=== PATIENT | male | born 1970 | race Caucasian/White ===

== ENCOUNTER 2016-12-05 17:39 | Emergency (ER) | payer BC ==
[2016-12-05 18:25] VITALS: BP 128/68
--- NOTE | 2016-12-05 18:58 | UC ---
Throat Pain/Nasal Long HPI - HPI Summary HPI Summary: bilat jaw pain. Left ear pain for past 2 days. Notices jaw pain at night, will wake him up. Radiates into left ear. He uses a mouth guard at night because dentist saw evidence of tooth grinding. Sometimes jaw will be "locked" and he will have trouble opening it. Hurts to chew things like meat or gum. - History of Current Complaint Chief Complaint: UCGeneralIllness Stated Complaint: EAR & JAW PAIN Time Seen by Provider: 12/05/16 18:40 Hx Obtained From: Patient Onset/Duration: Gradual Onset, Lasting Weeks - 2 Severity: Mild Cough: None Associated Signs & Symptoms: Negative: Dysphagia, FB Sensation, Drooling, Wheezing, Hoarseness, Sinus Discomfort, Nasal Discharge, Fever - Epiglottits Risk Factors Epiglottis Risk Factors: Negative - Allergies/Home Medications Allergies/Adverse Reactions: Allergies Allergy/AdvReac Type Severity Reaction Status Date / Time Codeine AdvReac Intermediate "makes my Verified 12/05/16 18:21 whole body, stomach knot up" PMH/Surg Hx/FS Hx/Imm Hx Previously Healthy: Yes Endocrine History Of: Denies: Diabetes, Thyroid Disease Cardiovascular History Of: Denies: Cardiac Disorders, Hypertension Respiratory History Of: Denies: COPD, Asthma GI/ History Of: Denies: Ulcer - Surgical History Surgical History: None - Family History Known Family History: Positive: Hypertension - Social History Occupation: Employed Full-time Lives: With Family Alcohol Use: Weekly Alcohol Amount: "couple mixed drinks a few times weekly" Substance Use Type: None Smoking Status (MU): Never Smoked Tobacco - Immunization History Most Recent Influenza Vaccination: Not the Season Review of Systems Constitutional: Negative Skin: Negative Eyes: Negative ENT: Ear Ache, Other - bilat jaw ache Respiratory: Negative Cardiovascular: Negative Gastrointestinal: Negative Genitourinary: Negative Motor: Negative Neurovascular: Negative Musculoskeletal: Negative Neurological: Negative Psychological: Negative All Other Systems Reviewed And Are Negative: Yes Physical Exam Triage Information Reviewed: Yes Appearance: Well-Appearing, No Pain Distress, Well-Nourished Vital Signs: Initial Vital Signs Temp 97.8 F 12/05/16 18:20 Pulse 70 12/05/16 18:20 Resp 16 12/05/16 18:20 BP 128/68 12/05/16 18:20 Pulse Ox 99 12/05/16 18:20 Vital Signs Reviewed: Yes Eye Exam: Normal ENT: Positive: Normal ENT inspection, Hearing grossly normal, Pharynx normal, TMs normal. Negative: TM bulging, TM dull, TM red, Tonsillar swelling, Tonsillar exudate, Trismus, Muffled/hoarse voice Dental: Positive: Other: - tenderness to palpation over TMJ joints, left more than right Neck exam: Normal Neck: Positive: Supple Respiratory Exam: Normal Cardiovascular Exam: Normal Musculoskeletal Exam: Normal Neurological Exam: Normal Psychological Exam: Normal Skin Exam: Normal Throat Pain/Nasal Course/Dx - Differential Dx/Diagnosis Provider Diagnoses: TMJ syndrome Discharge - Discharge Plan Condition: Stable Disposition: HOME Prescriptions: Meloxicam [Mobic] 15 mg PO DAILY PRN #30 tab PRN Reason: Pain Patient Education Materials: Temporomandibular Disorder (ED) Referrals: Javon Diaz MD [Primary Care Provider] - Additional Instructions: TMJ syndrome is often from clenching the jaw at night. Talk to your dentist to see if there are alternative treatments. Work on reducing stress, as this is usually the cause of jaw clenching at night.
== END 2016-12-05 19:04 | disposition home or self-care (01) ==
LOC: UCCORT 17:39
DX: M26.609 Unspecified temporomandibular joint disorder, unspecified side (principal); Z88.5 Allergy status to narcotic agent
CPT/HCPCS: 99212; G0463

== ENCOUNTER 2017-08-30 07:08 | Emergency (ER) | payer BC ==
[2017-08-30 07:16] VITALS: BP 126/82
--- NOTE | 2017-08-30 07:29 | UC ---
Respiratory Complaint HPI - HPI Summary HPI Summary: he has been sick with cough, congestion that has been improving. Over the last two days, cough has worsened and he has had myalgias and malaise as well. - History of Current Complaint Chief Complaint: UCRespiratory Stated Complaint: COUGH,BODY ACHES Time Seen by Provider: 08/30/17 07:20 Hx Obtained From: Patient Onset/Duration: Gradual Onset, Lasting Days Timing: Constant Severity Initially: Mild Severity Currently: Moderate Character: Cough: Nonproductive Aggravating Factors: Deep Breaths, Recumbent Position Alleviating Factors: Other - mucinex dm. Associated Signs And Symptoms: Positive: Chills, URI, Nasal Congestion - Risk Factors Pulmonary Embolism Risk Factors: Negative - Allergies/Home Medications Allergies/Adverse Reactions: Allergies Allergy/AdvReac Type Severity Reaction Status Date / Time Codeine AdvReac Intermediate "makes my Verified 08/30/17 07:16 whole body, stomach knot up" PMH/Surg Hx/FS Hx/Imm Hx Previously Healthy: Yes - no lung disease. - Surgical History Surgical History: None - Family History Known Family History: Positive: Hypertension - Social History Alcohol Use: Weekly Alcohol Amount: "couple mixed drinks a few times weekly" Substance Use Type: None Smoking Status (MU): Never Smoked Tobacco - Immunization History Most Recent Influenza Vaccination: no Review of Systems Respiratory: Cough All Other Systems Reviewed And Are Negative: Yes Physical Exam Triage Information Reviewed: Yes Appearance: Well-Appearing - non toxic. frequent dry cough., No Pain Distress, Well-Nourished Vital Signs: Initial Vital Signs Temp 99 F 08/30/17 07:12 Pulse 85 08/30/17 07:12 Resp 18 08/30/17 07:12 BP 126/82 08/30/17 07:12 Pulse Ox 98 08/30/17 07:12 Vital Signs Reviewed: Yes Eye Exam: Normal Eyes: Positive: Conjunctiva Clear. Negative: Conjunctiva Inflamed ENT: Positive: Pharynx normal, Nasal congestion, TMs normal. Negative: Pharyngeal erythema, Tonsillar swelling, Tonsillar exudate, Trismus Neck exam: Normal Neck: Positive: Supple, Nontender, No Lymphadenopathy Respiratory: Positive: Lungs clear, Normal breath sounds, No respiratory distress, No accessory muscle use. Negative: Respiratory distress, Decreased breath sounds, Accessory muscle use, Crackles, Rhonchi, Stridor, Wheezing Cardiovascular: Positive: RRR, No Murmur, Pulses Normal, Brisk Capillary Refill. Negative: Tachycardia, Bradycardia Abdomen Description: Positive: Nontender, No Organomegaly, Soft Musculoskeletal: Positive: ROM Intact, No Edema Neurological: Positive: Alert, Muscle Tone Normal, Fatigued Skin: Negative: rashes UC Diagnostic Evaluation - Laboratory O2 Sat by Pulse Oximetry: 98 Respiratory Course/Dx - Course Course Of Treatment: supportive care. likely resolving chest cold and he had another viral chest cold begin. There are no clinical signs of pneumonia. he will start z pack if not better in 5-7 days. - Differential Dx/Diagnosis Differential Diagnosis/HQI/PQRI: Aspiration, Asthma, Bronchitis, CHF, Pulmonary Edema, Influenza, Laryngitis, Lower Resp Infection, Pneumothorax, Pulmonary Embolism, Sinusitis Provider Diagnoses: uri. chest cold Discharge - Discharge Plan Condition: Good Disposition: HOME Prescriptions: Azithromyxin MARIA ALEJANDRA (NF) [Z-Maria Alejandra (Zithromax) 250 mg tabs #6] 1 tab PO .TODAY, THEN 1 DAILY #6 tab Benzonatate CAP* [Tessalon 100 MG CAP*] 100 mg PO TID PRN #20 cap PRN Reason: Cough Patient Education Materials: Upper Respiratory Infection (ED) Forms: *Work Release Referrals: Javon Diaz MD [Primary Care Provider] - If Needed
== END 2017-08-30 07:34 | disposition home or self-care (01) ==
LOC: UCCORT 07:08
DX: J06.9 Acute upper respiratory infection, unspecified (principal); Z88.5 Allergy status to narcotic agent
CPT/HCPCS: 99212; G0463

== ENCOUNTER 2018-07-27 09:04 | Emergency (ER) | payer BC ==
--- NOTE | 2018-07-27 11:12 | UC ---
General HPI - HPI Summary HPI Summary: R eye d/c x [address], cough and now much worse sinus pain, pressure and congestion for at least 1 week - History of Current Complaint Stated Complaint: RIGHT EYE COMPLAINT/COUGH CONGESTION Time Seen by Provider: 07/27/18 10:44 Hx Obtained From: Patient Onset/Duration: Gradual Onset Timing: Constant Alleviating: nothing Associated Signs & Symptoms: Positive: Cough, Headache. Negative: Chest Pain, Fever, SOB, Wheezing - Allergy/Home Medications Allergies/Adverse Reactions: Allergies Allergy/AdvReac Type Severity Reaction Status Date / Time MS Codeine [Codeine] AdvReac Intermediate "makes my Verified 08/30/17 07:16 whole body, stomach knot up" PMH/Surg Hx/FS Hx/Imm Hx Previously Healthy: Yes - Surgical History Surgical History: None - Family History Known Family History: Positive: Hypertension - Social History Occupation: Employed Full-time Lives: With Family Alcohol Use: Weekly Alcohol Amount: "couple mixed drinks a few times weekly" Substance Use Type: None Smoking Status (MU): Never Smoked Tobacco - Immunization History Most Recent Influenza Vaccination: no Hx Tetanus, Diphtheria Vaccination: No Vaccination Up to Date: Yes Review of Systems Constitutional: Negative Skin: Negative Eyes: Drainage, Eye Redness ENT: Sore Throat, Sinus Congestion, Sinus Pain/Tenderness Respiratory: Negative Cardiovascular: Negative Gastrointestinal: Negative Genitourinary: Negative Motor: Negative Neurovascular: Negative Musculoskeletal: Negative Neurological: Headache Psychological: Negative Is Patient Immunocompromised?: No All Other Systems Reviewed And Are Negative: Yes Physical Exam Triage Information Reviewed: Yes Appearance: Well-Appearing Vital Signs Reviewed: Yes Eyes: Positive: Conjunctiva Inflamed - OD. PERRL, EOMI. No rash. Crusting OD ENT: Positive: Pharynx normal, Nasal congestion, TMs normal, Sinus tenderness Neck: Positive: Supple, Nontender, No Lymphadenopathy Respiratory: Positive: Lungs clear, Normal breath sounds Cardiovascular: Positive: RRR, No Murmur Abdomen Description: Positive: Nontender, No Organomegaly, Soft Bowel Sounds: Positive: Present Musculoskeletal: Positive: ROM Intact Psychological: Positive: Age Appropriate Behavior Skin Exam: Normal Course/Dx - Course Course Of Treatment: no orbital cellulitis or concern for corneal ulcer. - Differential Dx - Multi-Symptom Provider Diagnoses: conjunctivitis od, sinusitis Discharge - Sign-Out/Discharge Documenting (check all that apply): Patient Departure All imaging exams completed and their final reports reviewed: No Studies - Discharge Plan Condition: Stable Disposition: HOME Prescriptions: Amoxicillin/Clavulanate TAB* [Augmentin TAB 875*] 875 mg PO BID #20 tab Polymyx/Trimethoprim OPTH* [Polytrim OPHTH*] 3 drop BOTH EYES Q3H 7 Days #1 btl Patient Education Materials: Sinusitis (ED), Conjunctivitis (ED) Referrals: Javon Diaz MD [Primary Care Provider] - 7 Days - Billing Disposition and Condition Condition: STABLE Disposition: Home
== END 2018-07-27 11:23 | disposition home or self-care (01) ==
LOC: UCCORT 09:04
DX: H10.9 Unspecified conjunctivitis (principal); J32.9 Chronic sinusitis, unspecified; Z88.5 Allergy status to narcotic agent
CPT/HCPCS: 99212; G0463